=== PATIENT | female | born 1965 | race Caucasian/White ===

== ENCOUNTER 2017-09-21 22:00 | Observation (INO) ==
[2017-09-21 22:35] LABS: Basophils # 0.1 K/mcL (0.0-0.2); Basophils % 0.4 %; Eosinophils # 0.1 K/mcL (0.0-0.6); Eosinophils % 0.6 %; Hematocrit 41.7 % (35.3-44.9); Hemoglobin 13.9 g/dL (11.5-15.4); Immature Granulocytes % 0.4 % (0-4); Lymphocytes # 1.5 K/mcL (0.6-4.6); Lymphocytes % 10.8 %; Mean Corpuscular HGB Conc 33.3 g/dL (31.6-35.5); Mean Corpuscular Hemoglobin 30.4 pg (28.0-33.3); Mean Corpuscular Volume 91.2 fL (83.0-100.0); Mean Platelet Volume 10.4 fL (9.4-12.4); Monocytes # 1.3 K/mcL (0.0-1.3); Monocytes % 9.4 %; Neutrophils # 10.8 K/mcL (1.6-8.9); Platelet Count 227 K/mcL (140-400); Red Blood Count 4.57 M/mcL (3.82-4.97); Red Cell Distribution Width 13.7 % (11.5-14.5); Segmented Neutrophils % 78.4 %
[2017-09-21 22:40] LABS: Prothrombin Time 11.1 Seconds (9.4-12.1)
[2017-09-21 22:43] LABS: Activated Partial Thrombo Time 27.3 Seconds (26.0-36.0)
[2017-09-21 22:56] LABS: BUN/Creatinine Ratio 27 (6-26); Blood Urea Nitrogen 23 mg/dL (6-20); Calcium 9.5 mg/dL (8.6-10.3); Carbon Dioxide 24 mEq/L (23-29); Chloride 105 mEq/L (98-107); Glucose 84 mg/dL (70-105); Osmolality,Calculated 295 (280-300); Potassium 3.4 mEq/L (3.5-5.1); Sodium 141 mEq/L (136-145); eGFR For African Americans > 60 (> 60); eGFR For Non-African Americans > 60 (> 60)
[2017-09-21 22:57] LABS: Troponin I < 0.03 ng/mL (< 0.04)
[2017-09-21] MEDS ORDERED: Nitroglycerin 0.4 MG TAB.SUBL SL STA (23:02)
[2017-09-21] MEDS ORDERED: Aspirin 81 MG TAB.CHEW PO ONE (23:02)
[2017-09-21] MEDS ORDERED: *HR* FentaNYL (PF) 100 MCG/2 ML VIAL IVP ONE (23:50)
[2017-09-21] MEDS ORDERED: 0.9 % Sodium Chloride 1,000 ML IVC ONE (23:57)
[2017-09-21] MEDS ORDERED: Ipratropium/Albuterol Neb 3 ML IH ONE (23:57)
--- NOTE | 2017-09-22 00:57 | Emergency Department Note ---
Disposition Clinical Impression: Chest pain Qualifiers: Chest pain type: unspecified Qualified Code(s): R07.9 - Chest pain, unspecified Disposition: Admitted As Inpatient Condition: Good Chest Pain HPI - General Chief Complaint: ED Chest Pain Stated Complaint: Chest Pain Time Seen by Provider: 09/21/17 22:45 Source: patient Limitations: no limitations Vital Signs Reviewed: Yes Nursing Notes Reviewed: Yes - History of Present Illness HPI Narrative: Patient presents today for evaluation of chest pain. Chest pain center chest and described as tightness. Worse with exertion. Patient states that earlier today she had neck pain. Neck pain is worse with movement of her neck. No specific trauma. Not after sleeping. Patient states that she has not had similar symptoms in the past. No previous cardiac history or workup. She does have a history of lung cancer is not currently treated as a remission. Patient received aspirin and nitroglycerin. Severity scale (1-10): 6 - Related Data Home Medications Medication Instructions Recorded Confirmed Levothyroxine [Synthroid] 88 mcg PO QAM 02/11/15 09/15/17 Albuterol Sulfate [Proventil Hfa] 2 puff IH Q4H PRN 05/12/17 09/15/17 Allergies Allergy/AdvReac Type Severity Reaction Status Date / Time Oxycodone [From Roxicodone] Allergy Unknown Rash Verified 09/15/17 11:39 Hydromorphone [From Dilaudid] Allergy Rash Verified 09/15/17 11:39 Review of Systems: CONSTITUTIONAL: No weight loss, fever, chills, weakness or fatigue. HEENT: Eyes: No visual changes. Ears, Nose, Throat: No hearing loss, difficulty talking or unable to swallow. SKIN: No rash or itching. CARDIOVASCULAR: Chest pressure RESPIRATORY: No shortness of breath, cough or sputum. GASTROINTESTINAL: No anorexia, nausea, vomiting or diarrhea. No abdominal pain or blood. GENITOURINARY: No burning on urination or hematuria. NEUROLOGICAL: No headache, dizziness, syncope, paralysis, ataxia, numbness or tingling in the extremities. No change in bowel or bladder control. MUSCULOSKELETAL: Neck pain No muscle pain, back pain, joint pain or stiffness. Chest Pain PMH - Past Medical History Medical history: Reports: arthritis, cancer, thyroid disease Surgical history: Reports: orthopedic, other Psychiatric history: Reports: anxiety - Social History Smoking Status: Former smoker Alcohol use: Reports: none Drug use: Reports: none Physical Exam General: Well appearing, nontoxic, no acute distress Head: Normocephalic Atraumatic Eyes: PERRL, EOMI ENT: Airway patent, no stridor Neck: supple, no meningismus Chest: Lungs clear to auscultation bilateral Cardiac: Regular rate and rhythm, no murmurs, rubs or gallops Abdomen: soft, nontender, nondistended; no guarding, rebound, or tenderness to percussion Musculoskeletal: Calves symmetric, nontender, no palpable cord Skin: No rash, normal skin tone Neuro: Alert and Oriented to person, place, and time; No focal deficit, CN 2-12 symmetric and intact - General Limitations: no limitations General appearance: alert, in no apparent distress Course Course Narrative: Patient received aspirin and 2 nitroglycerin. Patient states that closer did not significantly improve her pain. Patient still complaining of chest pressure. Patient has allergies to narcotics. Patient has tolerated atenolol in the past. April given along with a breathing treatment. Patient states that she now feels significantly better. Patient did not have any significant wheezing and lung sounds are unchanged after breathing treatment. Patient did not have complaints of shortness of breath. Less likely COPD exacerbation. Patient does have concerns for cardiac disease. She does have nonspecific T- wave changes throughout the precordial and lateral leads. The patient states that her symptoms worsen acutely worse with walking. Has not had any previous cardiac workup. Have discussed with her at bedside. Will plan for cardiac evaluation. D-dimer negative. - Consultations Consultation #1: Discussed the hospitalist. Patient accepted for admission. Vital Signs Temperature 98.0 F 09/21/17 22:01 Pulse Rate 84 09/21/17 22:01 Respiratory Rate 18 09/21/17 22:01 Blood Pressure 134/85 09/21/17 22:01 O2 Sat by Pulse Oximetry 95 09/21/17 22:01 Temperature 97.8 F 09/22/17 01:39 Pulse Rate 79 09/22/17 00:32 Respiratory Rate 16 09/22/17 01:39 Blood Pressure 110/68 09/22/17 01:39 O2 Sat by Pulse Oximetry 96 09/22/17 00:32 Oxygen Delivery Oxygen Delivery Nasal Cannula Chest Pain - Medical Records Medical records reviewed: Yes I reviewed the patient's medical records. - Lab Data Lab results reviewed: Yes I reviewed the patient's lab results. Result diagrams: 09/21/17 22:27 09/21/17 22:27 Lab Results 09/21/17 09/21/17 09/21/17 Range/Units 22:27 22:27 22:27 WBC 13.8 H D (4.3-11.1) K/mcL RBC 4.57 (3.82-4.97) M/mcL Hgb 13.9 (11.5-15.4) g/dL Hct 41.7 (35.3-44.9) % MCV 91.2 (83.0-100.0) fL MCH 30.4 (28.0-33.3) pg MCHC 33.3 (31.6-35.5) g/dL RDW 13.7 (11.5-14.5) % Plt Count 227 (140-400) K/mcL MPV 10.4 (9.4-12.4) fL Immature Gran % 0.4 (0-4) % Seg Neutrophils % 78.4 % Lymphocytes % 10.8 % Monocytes % 9.4 % Eosinophils % 0.6 % Basophils % 0.4 % Neutrophils # 10.8 H (1.6-8.9) K/mcL Lymphocytes # 1.5 (0.6-4.6) K/mcL Monocytes # 1.3 (0.0-1.3) K/mcL Eosinophils # 0.1 (0.0-0.6) K/mcL Basophils # 0.1 (0.0-0.2) K/mcL PT 11.1 (9.4-12.1) Seconds INR 1.0 APTT 27.3 (26.0-36.0) Seconds D-Dimer 399 (0-500) ng/mLFEU Sodium 141 (136-145) mEq/L Potassium 3.4 L (3.5-5.1) mEq/L Chloride 105 (98-107) mEq/L Carbon Dioxide 24 (23-29) mEq/L BUN 23 H (6-20) mg/dL Creatinine 0.85 (0.60-1.20) mg/dL Est GFR ( Amer) > 60 (> 60) Est GFR (Non-Af Amer) > 60 (> 60) BUN/Creatinine Ratio 27 H (6-26) Glucose 84 (70-105) mg/dL Calculated Osmolality 295 (280-300) Calcium 9.5 (8.6-10.3) mg/dL Troponin I < 0.03 (< 0.04) ng/mL - Radiology Data Radiology results reviewed: Yes I reviewed the patient's radiology results. - EKG Data EKG attestation: Yes I reviewed and interpreted this EKG. EKG results narrative: EKG shows sinus rhythm with ventricular rate of 76. CO interval 160. QRS 90. QTC 429. Patient has no skin ST elevations or depressions. Patient does have T -wave flattening throughout V1 through V6. As well as one in aVL. These changes are acute from previous of 12/17/2016. Heart Score - Score History: Moderately Suspicious EKG: Non Specific repolarisation Disturbance Age: 45-65 Risk Factors: 1-2 risk factors Troponin: Less than normal limit HEART Score Total: 4
--- NOTE | 2017-09-22 05:45 | Emergency Department Note ---
Disposition Clinical Impression: Chest pain Qualifiers: Chest pain type: unspecified Qualified Code(s): R07.9 - Chest pain, unspecified Disposition: Admitted As Inpatient Condition: Good General Adult HPI - General Chief complaint: ED Chest Pain Stated complaint: Chest Pain Time Seen by Provider: 09/21/17 22:45 Source: patient Limitations: no limitations Nursing Notes Reviewed: Yes Vital Signs Reviewed: Yes - History of Present Illness Pain Scale: 6 - Related Data Home Medications Medication Instructions Recorded Confirmed Levothyroxine [Synthroid] 88 mcg PO QAM 02/11/15 09/15/17 Albuterol Sulfate [Proventil Hfa] 2 puff IH Q4H PRN 05/12/17 09/15/17 Allergies Allergy/AdvReac Type Severity Reaction Status Date / Time Oxycodone [From Roxicodone] Allergy Unknown Rash Verified 09/15/17 11:39 Hydromorphone [From Dilaudid] Allergy Rash Verified 09/15/17 11:39 Past Medical History - Past Medical History Medical history: Reports: arthritis, cancer, thyroid disease Surgical history: Reports: orthopedic, other Psychiatric history: Reports: anxiety - Social History Smoking Status: Former smoker Smokeless Tobacco Status: No Alcohol use: Reports: none Drug use: Reports: none Physical Exam - General Limitations: no limitations General appearance: alert, in no apparent distress Course Vital Signs Temperature 98.0 F 09/21/17 22:01 Pulse Rate 84 09/21/17 22:01 Respiratory Rate 18 09/21/17 22:01 Blood Pressure 134/85 09/21/17 22:01 O2 Sat by Pulse Oximetry 95 09/21/17 22:01 Temperature 97.8 F 09/22/17 01:39 Pulse Rate 79 09/22/17 00:32 Respiratory Rate 16 09/22/17 01:39 Blood Pressure 110/68 09/22/17 01:39 O2 Sat by Pulse Oximetry 96 09/22/17 00:32 Oxygen Delivery Oxygen Delivery Nasal Cannula Medical Decision Making - Lab Data Result diagrams: 09/21/17 22:27 09/21/17 22:27 Lab Results 09/21/17 09/21/17 09/21/17 Range/Units 22:27 22:27 22:27 WBC 13.8 H D (4.3-11.1) K/mcL RBC 4.57 (3.82-4.97) M/mcL Hgb 13.9 (11.5-15.4) g/dL Hct 41.7 (35.3-44.9) % MCV 91.2 (83.0-100.0) fL MCH 30.4 (28.0-33.3) pg MCHC 33.3 (31.6-35.5) g/dL RDW 13.7 (11.5-14.5) % Plt Count 227 (140-400) K/mcL MPV 10.4 (9.4-12.4) fL Immature Gran % 0.4 (0-4) % Seg Neutrophils % 78.4 % Lymphocytes % 10.8 % Monocytes % 9.4 % Eosinophils % 0.6 % Basophils % 0.4 % Neutrophils # 10.8 H (1.6-8.9) K/mcL Lymphocytes # 1.5 (0.6-4.6) K/mcL Monocytes # 1.3 (0.0-1.3) K/mcL Eosinophils # 0.1 (0.0-0.6) K/mcL Basophils # 0.1 (0.0-0.2) K/mcL PT 11.1 (9.4-12.1) Seconds INR 1.0 APTT 27.3 (26.0-36.0) Seconds D-Dimer 399 (0-500) ng/mLFEU Sodium 141 (136-145) mEq/L Potassium 3.4 L (3.5-5.1) mEq/L Chloride 105 (98-107) mEq/L Carbon Dioxide 24 (23-29) mEq/L BUN 23 H (6-20) mg/dL Creatinine 0.85 (0.60-1.20) mg/dL Est GFR ( Amer) > 60 (> 60) Est GFR (Non-Af Amer) > 60 (> 60) BUN/Creatinine Ratio 27 H (6-26) Glucose 84 (70-105) mg/dL Calculated Osmolality 295 (280-300) Calcium 9.5 (8.6-10.3) mg/dL Troponin I < 0.03 (< 0.04) ng/mL Attestation Statement - Attestation Attestation: I examined this patient and my medical decision-making was reviewed with the Resident Physician. I agree with the documented findings, disposition and treatment plan as described except to the extent set forth below. 52-year-old female presents to the emergency department complaining of some mid chest tightness and discomfort. No history of heart problems in the past. Symptoms are worse with exertion. No shortness of breath. On examination patient is a well-developed well-nourished well-appearing female in no acute distress. She is alert and oriented 3. There is no cyanosis or diaphoresis. Labs reviewed. D-dimer normal. Troponin normal. EKG shows a normal sinus rhythm with ventricular rate is 76. No acute ST segment elevation or depression. There is some nonspecific T-wave abnormality with flattening. Chest x-ray showed mild left basilar atelectasis. The hospitalist, Dr. Vasquez, was consulted and accepted admission of the patient.
[2017-09-22] MEDS ORDERED: *HR* FentaNYL (PF) 100 MCG/2 ML VIAL IVP PRN (06:01)
[2017-09-22] MEDS ORDERED: Nitroglycerin 0.4 MG TAB.SUBL SL PRN (06:13)
[2017-09-22] MEDS: *HR* Heparin 5,000 UNIT/ML VIAL SQ SCH ×2 (06:41→17:49)
[2017-09-22 07:43] LABS: Basophils % 0.5 %; Eosinophils % 0.5 %; Hematocrit 36.8 % (35.3-44.9); Immature Granulocytes % 0.4 % (0-4); Lymphocytes # 0.9 K/mcL (0.6-4.6); Lymphocytes % 11.2 %; Mean Corpuscular HGB Conc 32.6 g/dL (31.6-35.5); Mean Corpuscular Hemoglobin 30.2 pg (28.0-33.3); Mean Corpuscular Volume 92.5 fL (83.0-100.0); Mean Platelet Volume 10.5 fL (9.4-12.4); Monocytes # 1.2 K/mcL (0.0-1.3); Monocytes % 15.1 %; Neutrophils # 5.8 K/mcL (1.6-8.9); Platelet Count 173 K/mcL (140-400); Red Blood Count 3.98 M/mcL (3.82-4.97); Red Cell Distribution Width 13.8 % (11.5-14.5); Segmented Neutrophils % 72.3 %
[2017-09-22 07:46] LABS: BUN/Creatinine Ratio 23 (6-26); Blood Urea Nitrogen 15 mg/dL (6-20); Calcium 8.3 mg/dL (8.6-10.3); Carbon Dioxide 23 mEq/L (23-29); Chloride 109 mEq/L (98-107); Chol/HDL Ratio 2.9 (0-4.9); Cholesterol 171 mg/dL (< 200); Glucose 115 mg/dL (70-105); HDL Cholesterol 59 mg/dL (40-59); LDL Cholesterol,Calculated 106 mg/dL (0-99); Osmolality,Calculated 294 (280-300); Potassium 3.6 mEq/L (3.5-5.1); Sodium 141 mEq/L (136-145); Triglycerides 28 mg/dL (< 150); Troponin I < 0.03 ng/mL (< 0.04); eGFR For African Americans > 60 (> 60); eGFR For Non-African Americans > 60 (> 60)
[2017-09-22 07:51] LABS: INR 1.1; Prothrombin Time 12.1 Seconds (9.4-12.1)
[2017-09-22 07:54] LABS: Activated Partial Thrombo Time 28.2 Seconds (26.0-36.0)
[2017-09-22] MEDS: Aspirin 81 MG TAB.CHEW PO SCH (08:42)
--- NOTE | 2017-09-22 13:34 | Electrocardiograph Report ---
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
[2017-09-22] MEDS: Acetaminophen 325 MG TABLET PO PRN ×2 (13:42→20:19)
--- NOTE | 2017-09-22 15:09 | Electrocardiograph Report ---
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
--- NOTE | 2017-09-22 17:06 | Internal Med Progress Note ---
Date of Encounter: 09/22/17 Time of Encounter: 11:10 - Assessment and plan (1) Chest pain Current Visit: Yes Status: Acute Assessment and plan: Patient presented to the emergency department with one-day history of chest pain with radiation to the left neck and jaw. She reported palpitations and tachycardia. Onset while at work. She denies fevers, cough, shortness of breath, nausea, vomiting, diaphoresis. No radiation to the back or arm. Chest pain is not reproducible with palpation, she does report 2/10 pain with inspiration, becomes worse with deep inspiration. Pain is not reproducible with movement. Denies prior cardiac history, no CAD. D-dimer is negative. Troponins were negative 3. Echo completed shows LVEF of 60% with normal LV diastolic function, mild AR, mild TR. There is noted a suggestion of pulmonary AVM in secondary to bubbles seen in the LV after about 6 cardiac cycles. There is no evidence of PFO. Continue telemetry Treat chest pain with aspirin or nitroglycerin Stress test ordered for morning. Monitor vitals and labs Cardiac diet. Nothing by mouth after midnight. Qualifiers: Chest pain type: unspecified Qualified Code(s): R07.9 - Chest pain, unspecified (2) Cancer of right lung Current Visit: Yes Status: Chronic Assessment and plan: Prior history. In remission since 2012. Chest x-ray showed continued right suprahilar scarring and/or neoplasm which appears similar when compared to previous chest CT. Last chest CT is dated 03/22/2017, shows interval improvement of right paramediastinal post radiation pneumonitis/fibrosis with improvement in the previously measured right perihilar mass which may represent inflammatory changes versus neoplasm. Chest X-Ray 09/21/17 22:04 IMPRESSION: The only acute abnormality appears to be mild left basilar airspace disease, which could represent atelectasis, although pneumonia remains in the differential. Continued right suprahilar scarring and/or neoplasm, which appears similar when compared the previous chest CT. D/ / Wilfredo Bryant MD / Wilfredo Bryant MD Interpreting Provider: Wilfredo Bryant MD Qualifiers: Lung location: unspecified part of lung Qualified Code(s): C34.91 - Malignant neoplasm of unspecified part of right bronchus or lung (3) DVT prophylaxis Current Visit: Yes Status: Acute Assessment and plan: Heparin SQ BID. Encourage ambulation. - Time Spent With Patient Total time spent is greater than 50% in coordination of care (as documented) at patient's floor/unit and/or counseling patient: less than 15 minutes - Subjective Interval history: Pt was seen and assessed at bedside at 1110. She had just returned from testing when I saw her. Pt reports that she feels tired. She is flat and at times slow to respond. She reports 2/10 left chest pain with inspiration, worse with deep inspiration. Onset of chest pain while at work. 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 Denies that pain is reproducible with palpation. She denies headache, dizziness, n/v/d, diaphoresis , abdominal pain or SOB. - Constitutional Vitals: Temp Pulse Resp BP Pulse Ox 98.6 F 75 16 103/65 93 09/22/17 15:25 09/22/17 15:25 09/22/17 15:25 09/22/17 15:25 09/22/17 15:25 General appearance: Present: cooperative, A&O X 3, pleasant, no acute distress, answers questions appropriately - Head Head exam: Present: atraumatic, normal inspection, normocephalic - Eye Eye exam: Present: normal appearance, conjuntiva pink, sclera anicteric - Neck Neck exam general surgery: Present: normal inspection, supple, trachea midline. Absent: lymphadenopathy, tenderness - Respiratory Respiratory exam: Present: CTAB. Absent: accessory muscle use, chest wall tenderness, rales, respiratory distress, rhonchi, wheezes - Cardiovascular Cardiovascular exam: Present: RRR, +S1, +S2. Absent: diastolic murmur, gallop, rubs, systolic murmur - GI/Abdominal GI/Abdominal exam: Present: normal bowel sounds, soft. Absent: distended, hepatomegaly, tenderness - Extremities Exam Extremities exam: Present: normal capillary refill, normal inspection, warm, radial pulses palpable and symmetrical. Absent: calf tenderness, cyanotic, pedal edema, tenderness - Neurological Exam Neurological exam: Present: alert, oriented X3, no focal deficits. Absent: facial droop, speech deficit - Skin Skin exam: Present: dry, intact, normal color, warm. Absent: rash Internal Medicine: Result - Labs CBC & Chem 7: 09/22/17 07:07 09/22/17 07:07 Labs: Short CBC 09/22/17 Range/Units 07:07 WBC 8.0 (4.3-11.1) K/mcL Hgb 12.0 D (11.5-15.4) g/dL Hct 36.8 (35.3-44.9) % Plt Count 173 (140-400) K/mcL Neutrophils # 5.8 (1.6-8.9) K/mcL BMP 09/22/17 07:07 Sodium 141 Potassium 3.6 Chloride 109 H Carbon Dioxide 23 BUN 15 Creatinine 0.64 Glucose 115 H Calcium 8.3 L Cardiac Enzymes 09/22/17 09/22/17 Range/Units 07:07 13:07 Troponin I < 0.03 < 0.03 (< 0.04) ng/mL - ABG Interpretation ABG results: PT/INR, D-dimer PT 12.1 Seconds (9.4-12.1) 09/22/17 07:07 D-Dimer 399 ng/mLFEU (0-500) 09/21/17 22:27 - Impressions Impressions Echocardiogram 09/22/17 06:08 Impressions: LVEF 60%. Normal left ventricular diastolic function. Normal right ventricular structure and function. Mild aortic regurgitation. Mild tricuspid regurgitation. Borderline pulmonary hypertension. Saline contrast injection demonstrates a few bubble seen in the LV after about 6 cardiac cycles, suggestive of a pulmonary AVM. No evidence for PFO. Left Ventricular Wall Motion: Rest Echo Findings All wall segments showed normal motion. Findings: Study Quality * Technically adequate exam. ECG Findings * Normal sinus rhythm. Left Ventricle * LVEF 60%. * Normal LV chamber size, wall thickness and function. * Normal left ventricular diastolic function. Right Ventricle * Normal right ventricular structure and function. Left Atrium * Normal left atrial size. Right Atrium * Normal right atrial size. Mitral Valve * Normal mitral valve structure. * No mitral stenosis. * No mitral regurgitation. Aortic Valve * Aortic valve not well visualized. * No aortic stenosis. * Mild aortic regurgitation. Tricuspid Valve * Normal tricuspid valve structure. * Mild tricuspid regurgitation. * Estimated RA pressure is 3 mmHg. * Estimated RVSP is 35 mmHg. * Borderline pulmonary hypertension. Pulmonic Valve * Pulmonic valve is not well visualized. * No pulmonic stenosis. * Trace pulmonic regurgitation. Pulmonary Artery * Pulmonary artery not well visualized. Aorta * Normally sized aortic root. Pericardium * There is no pericardial effusion present. Interatrial Septum * No evidence of PFO by color Doppler. IVC * Normal IVC dimensions and inspiratory collapse. Consult Discharge Plan - Plan Referrals: Terrell Frey MD [Primary Care Provider] - 09/28/17 8:00 am
[2017-09-23] MEDS: *HR* Heparin 5,000 UNIT/ML VIAL SQ SCH (05:42)
[2017-09-23] MEDS ORDERED: Regadenoson 0.4 MG/5 ML SYRINGE IVP ONE (06:06)
[2017-09-23] MEDS: Acetaminophen 325 MG TABLET PO PRN (08:55)
[2017-09-23] MEDS: Aspirin 81 MG TAB.CHEW PO SCH (08:56)
[2017-09-23 11:01] VITALS: BP 106/71
--- NOTE | 2017-09-23 13:46 | Discharge Summary ---
- NOTES TO OUTPATIENT PROVIDER Notes to Outpatient Provider: Pt was admitted for left chest pain with radiation to the neck. Echo shows LVEF 60%, normal LV diastolic function, mild AR, mild TR, possible PAVM. Stress test negative with gated EF 75%. Pt will follow up with cardiology outpatient for evaluation of AVM. Orders not resulted at time of discharge: Pending orders 09/23/17 06:00 NM alaina perf SPECT multi [NM] Routine ECG 12 lead ECG [ECG] AM 0600 Date of Encounter: 09/23/17 Time of Encounter: 09:30 - Discharge Diagnosis (1) Chest pain Priority: Primary Status: Acute Assessment and Plan: Pt pain free. Denies SOB, chest pain or neck pain. Echo completed shows LVEF of 60% with normal LV diastolic function, mild AR, mild TR. There is noted a suggestion of pulmonary AVM in secondary to bubbles seen in the LV after about 6 cardiac cycles. There is no evidence of PFO. Stress test negative. Pt will follow up with cardiology in the office for PAVM. Continue ASA Qualifiers: Chest pain type: unspecified Qualified Code(s): R07.9 - Chest pain, unspecified (2) Cancer of right lung Priority: Secondary Status: Chronic Assessment and Plan: Prior history. In remission since 2012. Follow with oncology as scheduled. Chest X-Ray 09/21/17 22:04 IMPRESSION: The only acute abnormality appears to be mild left basilar airspace disease, which could represent atelectasis, although pneumonia remains in the differential. Continued right suprahilar scarring and/or neoplasm, which appears similar when compared the previous chest CT. D/ / Wilfredo Bryant MD / Wilfredo Bryant MD Interpreting Provider: Wilfredo Bryant MD Qualifiers: Lung location: unspecified part of lung Qualified Code(s): C34.91 - Malignant neoplasm of unspecified part of right bronchus or lung (3) DVT prophylaxis Priority: Secondary Status: Acute Assessment and Plan: Heparin SQ BID. Hospital course: Ms. Lofton is a 52 year old female with PMH of lung cancer, hypothyroidism. Pt presented to the ED with c/o left chest pain and left neck pain. Troponins were negative x 3, chest xray negative but noted atelectasis vs pneumonia. Stress test negative, Echo with pEF, mild TR, mild MR, suggested PAVM. Pt will follow up with PCP for AVM, discussed with [employer]ER and Dr. Lange who state pt can follow up with in the office. Pt had no leukocytosis, tachycardia, fever, chills , cough, or SOB, no respiratory failure or distress. Lungs are clear, so pneumonia ruled out. Pt will continue to follow with oncology for stage IIIB lung cancer. Pt has returned to her baseline and states that she feels well and is ready to go home. Labs and vitals are stable and WNL, pt is ready for discharge. Discharge discussed with: patient, nurse - Time Spent with Patient Total time spent providing and/or coordinating discharge services: Less than 30 minutes - Discharge Medications Home Medications: Levothyroxine Sodium 88 mcg PO DAILY 09/22/17 [History] Aspirin 81 mg PO DAILY #0 tab.chew 09/23/17 [Rx] Allergies/Adverse Reactions: 3 Allergy/AdvReac Type Severity Reaction Status Date / Time Oxycodone [From Roxicodone] Allergy Unknown Rash Verified 09/22/17 08:07 Hydromorphone [From Dilaudid] Allergy Rash Verified 09/22/17 08:07 Date of admission: 09/22/17 01:29 Primary care physician: Terrell Frey MD Discharging clinician: Jena Olguin Anticipated date of discharge: 09/23/17 - Constitutional Vitals: Temp Pulse Resp BP Pulse Ox 97.7 F 54 16 106/71 93 09/23/17 11:00 09/23/17 11:00 09/23/17 11:00 09/23/17 11:00 09/23/17 11:00 General appearance: Present: cooperative, A&O X 3, pleasant, no acute distress, answers questions appropriately - Patient Status Disposition: Home, Self-Care Condition: Good Functional capacity at discharge: independent ambulation Overall status at discharge: patient is back to baseline - Discharge Instructions Follow Up With: Terrell Frey MD [Primary Care Provider] - 09/28/17 8:00 am Additional Instructions: Follow up with cardiology in their office for results of echo as scheduled. They will call you for an appointment. Follow up with PCP in the next 5-7 days for a recheck. REturn to the ER as needed for any other problems or concerns or if your symptoms return or worsen, Take your medications as directed. Return to your normal diet and activities as tolerated. - Diet and Activity Activity: increase activity as tolerated Diet: advance to your usual diet
== END 2017-09-23 15:30 | disposition home or self-care (01) ==
LOC: 3BNU 22:00 → EMEROO 22:00 → 3BNU 09-22 01:40
PROVIDERS: ADMIT Pediatrics; ATTEND Pediatrics

== ENCOUNTER 2020-05-30 11:39 | Inpatient (IN) ==
[2020-05-30 12:25] LABS: Basophils % 0.2 %; Hemoglobin 12.3 g/dL (11.5-15.4); Immature Granulocytes % 0.4 % (0-4); Lymphocytes # 0.8 K/mcL (0.6-4.6); Lymphocytes % 15.7 %; Mean Corpuscular HGB Conc 31.5 g/dL (31.6-35.5); Mean Corpuscular Hemoglobin 25.7 pg (28.0-33.3); Mean Corpuscular Volume 81.4 fL (83.0-100.0); Mean Platelet Volume 10.3 fL (9.4-12.4); Monocytes # 0.6 K/mcL (0.0-1.3); Monocytes % 10.9 %; Neutrophils # 3.9 K/mcL (1.6-8.9); Platelet Count 236 K/mcL (140-400); Red Blood Count 4.79 M/mcL (3.82-4.97); Red Cell Distribution Width 17.2 % (11.5-14.5); Segmented Neutrophils % 72.8 %; White Blood Count 5.3 K/mcL (4.3-11.1)
[2020-05-30 12:33] LABS: BUN/Creatinine Ratio 21 (6-26); Blood Urea Nitrogen 14 mg/dL (6-20); Calcium 8.3 mg/dL (8.6-10.3); Carbon Dioxide 25 mEq/L (23-29); Chloride 100 mEq/L (98-107); Glucose 104 mg/dL (70-105); Osmolality,Calculated 281 (280-300); Potassium 3.3 mEq/L (3.5-5.1); Sodium 135 mEq/L (136-145); Troponin I < 0.03 ng/mL (< 0.04); eGFR For African Americans > 60 (> 60); eGFR For Non-African Americans > 60 (> 60)
[2020-05-30] MEDS ORDERED: Naloxone 0.4 MG/ML INJ IVP PRN (14:18)
[2020-05-30] MEDS ORDERED: Ondansetron 4 MG/2 ML VIAL IVP PRN (14:18)
[2020-05-30] MEDS ORDERED: Azithromycin 500 MG in 0.9 % Sodium Chloride 250 ML IVPB SCH (15:00)
[2020-05-30] MEDS ORDERED: Potassium Chloride Elixir 20 MEQ/15 ML UDC PO ONE (15:04)
[2020-05-30] MEDS ORDERED: Acetaminophen 325 MG TABLET PO PRN (15:19)
[2020-05-30] MEDS ORDERED: Benzonatate 100 MG CAPSULE PO PRN (15:19)
[2020-05-30 15:57] LABS: C-Reactive Protein 43 mg/L (Less than 10); Lactate Dehydrogenase 318 Units/L (140-271)
[2020-05-30 16:15] LABS: Ferritin 25 ng/mL (10-120)
[2020-05-30] MEDS: cefTRIAXone 1,000 MG in Water for inj. (sterile) 10 ML IVP SCH (16:55)
[2020-05-31] MEDS ORDERED: Dexamethasone Sodium Phos/PF 10 MG/ML VIAL IVP ONE (00:30)
[2020-05-31 02:20] LABS: Adenovirus Not Detected (Not Detect); Coronavirus 229E Not Detected (Not Detect); Coronavirus HKU1 Not Detected (Not Detect); Coronavirus NL63 Not Detected (Not Detect); Coronavirus OC43 Not Detected (Not Detect)
[2020-05-31 02:21] LABS: Bordetella Pertussis Not Detected (Not Detect); Chlamydophila pneumoniae Not Detected (Not Detect); Human Metapneumovirus Not Detected (Not Detect); Human Rhinovirus/Enterovirus Not Detected (Not Detect); Influenza A Subtype 2009 H1 Not Detected (Not Detect); Influenza B Not Detected (Not Detect); Mycoplasma pneumoniae Not Detected (Not Detect); Parainfluenza Virus 1 Not Detected (Not Detect); Parainfluenza Virus 2 Not Detected (Not Detect); Parainfluenza Virus 3 Not Detected (Not Detect); Parainfluenza Virus 4 Not Detected (Not Detect); Respiratory Syncytial Virus Not Detected (Not Detect); SARS-CoV-2 DETECTED (Not Detect)
[2020-05-31] MEDS: *HR* Enoxaparin 40 MG/0.4 ML SYRINGE SQ SCH (05:37)
[2020-05-31 06:05] LABS: Hematocrit 37.6 % (35.3-44.9); Hemoglobin 11.7 g/dL (11.5-15.4); Immature Granulocytes % 0.8 % (0-4); Lymphocytes # 0.5 K/mcL (0.6-4.6); Lymphocytes % 12.1 %; Mean Corpuscular HGB Conc 31.1 g/dL (31.6-35.5); Mean Corpuscular Hemoglobin 25.1 pg (28.0-33.3); Mean Corpuscular Volume 80.5 fL (83.0-100.0); Mean Platelet Volume 10.7 fL (9.4-12.4); Monocytes # 0.2 K/mcL (0.0-1.3); Monocytes % 4.4 %; Neutrophils # 3.2 K/mcL (1.6-8.9); Platelet Count 239 K/mcL (140-400); Red Blood Count 4.67 M/mcL (3.82-4.97); Segmented Neutrophils % 82.7 %; White Blood Count 3.9 K/mcL (4.3-11.1)
[2020-05-31 06:29] LABS: BUN/Creatinine Ratio 22 (6-26); Blood Urea Nitrogen 12 mg/dL (6-20); Calcium 8.5 mg/dL (8.6-10.3); Carbon Dioxide 25 mEq/L (23-29); Chloride 106 mEq/L (98-107); Glucose 152 mg/dL (70-105); Osmolality,Calculated 293 (280-300); Potassium 3.7 mEq/L (3.5-5.1); Sodium 140 mEq/L (136-145); eGFR For African Americans > 60 (> 60); eGFR For Non-African Americans > 60 (> 60)
[2020-05-31] MEDS: cefTRIAXone 1,000 MG in Water for inj. (sterile) 10 ML IVP SCH (07:56)
[2020-05-31] MEDS: Ipratropium 1 PUFF INHALER IH SCH ×3 (12:09→20:55)
[2020-05-31 13:43] LABS: Alanine Aminotransferase 28 Units/L (7-52); Albumin 3.6 g/dL (3.5-5.7); Albumin/Globulin Ratio 1.1 (1.1-2.2); Alkaline Phosphatase 84 Units/L (34-104); Aspartate Amino Transferase 28 Units/L (13-39); Bilirubin,Indirect 0.3 mg/dL (0.0-1.0); Bilirubin,Total 0.3 mg/dL (0.3-1.0); Globulin 3.2 g/dL (2.4-3.5); Total Protein 6.8 g/dL (6.4-8.9)
[2020-05-31] MEDS: Furosemide 20 MG/2 ML VIAL IVP SCH (14:56)
[2020-05-31] MEDS ORDERED: Remdesivir 200 MG in 0.9 % Sodium Chloride 100 ML IVPB ONE (15:00)
[2020-05-31] MEDS ORDERED: Melatonin 3 MG TABLET PO ONE (21:44)
[2020-06-01] MEDS: Ipratropium 1 PUFF INHALER IH SCH ×6 (00:16→20:25)
[2020-06-01] MEDS: *HR* Enoxaparin 40 MG/0.4 ML SYRINGE SQ SCH (05:57)
[2020-06-01 07:21] LABS: Hematocrit 39.1 % (35.3-44.9); Hemoglobin 11.8 g/dL (11.5-15.4); Mean Corpuscular HGB Conc 30.2 g/dL (31.6-35.5); Mean Corpuscular Hemoglobin 24.7 pg (28.0-33.3); Mean Corpuscular Volume 81.8 fL (83.0-100.0); Mean Platelet Volume 10.9 fL (9.4-12.4); Platelet Count 284 K/mcL (140-400); Red Blood Count 4.78 M/mcL (3.82-4.97); Red Cell Distribution Width 17.2 % (11.5-14.5); White Blood Count 11.5 K/mcL (4.3-11.1)
[2020-06-01 07:41] LABS: BUN/Creatinine Ratio 33 (6-26); Blood Urea Nitrogen 21 mg/dL (6-20); Calcium 8.6 mg/dL (8.6-10.3); Carbon Dioxide 27 mEq/L (23-29); Chloride 103 mEq/L (98-107); Glucose 104 mg/dL (70-105); Osmolality,Calculated 299 (280-300); Sodium 143 mEq/L (136-145); eGFR For African Americans > 60 (> 60); eGFR For Non-African Americans > 60 (> 60)
[2020-06-01 07:42] LABS: Albumin 3.6 g/dL (3.5-5.7); Albumin/Globulin Ratio 1.1 (1.1-2.2); Bilirubin,Direct 0.1 mg/dL (0.0-0.2); Bilirubin,Indirect 0.2 mg/dL (0.0-1.0); Bilirubin,Total 0.3 mg/dL (0.3-1.0); Globulin 3.2 g/dL (2.4-3.5); Total Protein 6.8 g/dL (6.4-8.9)
[2020-06-01] MEDS: Furosemide 20 MG/2 ML VIAL IVP SCH (08:33)
[2020-06-01] MEDS: Remdesivir 100 MG in 0.9 % Sodium Chloride 100 ML IVPB SCH (14:52)
[2020-06-02] MEDS: Ipratropium 1 PUFF INHALER IH SCH ×7 (00:01→23:50)
[2020-06-02 04:08] LABS: Basophils % 0.2 %; Hematocrit 38.2 % (35.3-44.9); Hemoglobin 11.6 g/dL (11.5-15.4); Immature Granulocytes % 0.5 % (0-4); Lymphocytes # 0.9 K/mcL (0.6-4.6); Lymphocytes % 10.3 %; Mean Corpuscular HGB Conc 30.4 g/dL (31.6-35.5); Mean Corpuscular Hemoglobin 25.1 pg (28.0-33.3); Mean Corpuscular Volume 82.5 fL (83.0-100.0); Mean Platelet Volume 10.3 fL (9.4-12.4); Monocytes # 0.9 K/mcL (0.0-1.3); Monocytes % 10.3 %; Neutrophils # 6.7 K/mcL (1.6-8.9); Platelet Count 285 K/mcL (140-400); Red Blood Count 4.63 M/mcL (3.82-4.97); Red Cell Distribution Width 17.5 % (11.5-14.5); Segmented Neutrophils % 78.7 %; White Blood Count 8.5 K/mcL (4.3-11.1)
[2020-06-02 04:35] LABS: Alanine Aminotransferase 29 Units/L (7-52); Albumin 3.5 g/dL (3.5-5.7); Albumin/Globulin Ratio 1.1 (1.1-2.2); Alkaline Phosphatase 83 Units/L (34-104); Aspartate Amino Transferase 22 Units/L (13-39); BUN/Creatinine Ratio 41 (6-26); Bilirubin,Direct 0.1 mg/dL (0.0-0.2); Bilirubin,Indirect 0.2 mg/dL (0.0-1.0); Bilirubin,Total 0.3 mg/dL (0.3-1.0); Blood Urea Nitrogen 21 mg/dL (6-20); Calcium 8.6 mg/dL (8.6-10.3); Carbon Dioxide 26 mEq/L (23-29); Chloride 105 mEq/L (98-107); Globulin 3.2 g/dL (2.4-3.5); Glucose 113 mg/dL (70-105); Magnesium 2.3 mg/dL (1.6-2.6); Osmolality,Calculated 294 (280-300); Potassium 4.2 mEq/L (3.5-5.1); Sodium 140 mEq/L (136-145); Total Protein 6.7 g/dL (6.4-8.9); eGFR For African Americans > 60 (> 60); eGFR For Non-African Americans > 60 (> 60)
[2020-06-02] MEDS: *HR* Enoxaparin 40 MG/0.4 ML SYRINGE SQ SCH (05:34)
[2020-06-02] MEDS: Furosemide 20 MG/2 ML VIAL IVP SCH ×2 (10:17→20:14)
[2020-06-02] MEDS: Remdesivir 100 MG in 0.9 % Sodium Chloride 100 ML IVPB SCH (16:05)
[2020-06-03] MEDS: Ipratropium 1 PUFF INHALER IH SCH ×6 (03:22→23:04)
[2020-06-03 04:41] LABS: Basophils % 0.4 %; Hematocrit 40.6 % (35.3-44.9); Hemoglobin 12.7 g/dL (11.5-15.4); Immature Granulocytes % 1.2 % (0-4); Lymphocytes % 13.7 %; Mean Corpuscular HGB Conc 31.3 g/dL (31.6-35.5); Mean Corpuscular Hemoglobin 25.6 pg (28.0-33.3); Mean Corpuscular Volume 81.7 fL (83.0-100.0); Mean Platelet Volume 10.6 fL (9.4-12.4); Monocytes # 0.7 K/mcL (0.0-1.3); Monocytes % 9.8 %; Neutrophils # 5.6 K/mcL (1.6-8.9); Platelet Count 314 K/mcL (140-400); Red Blood Count 4.97 M/mcL (3.82-4.97); Red Cell Distribution Width 17.2 % (11.5-14.5); Segmented Neutrophils % 74.9 %; White Blood Count 7.5 K/mcL (4.3-11.1)
[2020-06-03 04:53] LABS: BUN/Creatinine Ratio 44 (6-26); Blood Urea Nitrogen 23 mg/dL (6-20); Calcium 8.7 mg/dL (8.6-10.3); Carbon Dioxide 26 mEq/L (23-29); Chloride 99 mEq/L (98-107); Glucose 124 mg/dL (70-105); Osmolality,Calculated 289 (280-300); Potassium 3.7 mEq/L (3.5-5.1); Sodium 137 mEq/L (136-145); eGFR For African Americans > 60 (> 60); eGFR For Non-African Americans > 60 (> 60)
[2020-06-03 04:56] LABS: Albumin 3.7 g/dL (3.5-5.7); Albumin/Globulin Ratio 1.1 (1.1-2.2); Bilirubin,Indirect 0.3 mg/dL (0.0-1.0); Bilirubin,Total 0.3 mg/dL (0.3-1.0); Globulin 3.5 g/dL (2.4-3.5); Total Protein 7.2 g/dL (6.4-8.9)
[2020-06-03] MEDS: *HR* Enoxaparin 40 MG/0.4 ML SYRINGE SQ SCH (05:24)
[2020-06-03 07:11] LABS: Anisocytosis 1+ (Not Present); Platelet Estimate Normal (Normal)
[2020-06-03] MEDS: Furosemide 20 MG/2 ML VIAL IVP SCH (09:39)
[2020-06-03] MEDS: Remdesivir 100 MG in 0.9 % Sodium Chloride 100 ML IVPB SCH (15:06)
[2020-06-03] MEDS: traZODone 50 MG TABLET PO SCH (20:03)
[2020-06-03] MEDS ORDERED: traZODone 50 MG TABLET PO SCH (21:00)
[2020-06-03] MEDS: Artificial Tears SOLN 15 ML BOTTLE BOTH EYES SCH (21:16)
[2020-06-04] MEDS: Ipratropium 1 PUFF INHALER IH SCH ×6 (03:40→23:09)
[2020-06-04 04:22] LABS: Platelet Count 355 K/mcL (140-400); Red Cell Distribution Width 16.8 % (11.5-14.5)
[2020-06-04 04:23] LABS: Hematocrit 39.2 % (35.3-44.9); Hemoglobin 12.3 g/dL (11.5-15.4); Immature Platelets 5.7 % (1.1-6.1); Mean Corpuscular HGB Conc 31.4 g/dL (31.6-35.5); Mean Corpuscular Hemoglobin 24.8 pg (28.0-33.3); Mean Corpuscular Volume 79.2 fL (83.0-100.0); Mean Platelet Volume 10.5 fL (9.4-12.4); Red Blood Count 4.95 M/mcL (3.82-4.97); White Blood Count 9.9 K/mcL (4.3-11.1)
[2020-06-04 04:43] LABS: Alanine Aminotransferase 25 Units/L (7-52); Albumin 3.7 g/dL (3.5-5.7); Albumin/Globulin Ratio 1.1 (1.1-2.2); Alkaline Phosphatase 76 Units/L (34-104); Aspartate Amino Transferase 17 Units/L (13-39); BUN/Creatinine Ratio 37 (6-26); Bilirubin,Direct 0.1 mg/dL (0.0-0.2); Bilirubin,Indirect 0.2 mg/dL (0.0-1.0); Bilirubin,Total 0.3 mg/dL (0.3-1.0); Blood Urea Nitrogen 21 mg/dL (6-20); Calcium 9.1 mg/dL (8.6-10.3); Carbon Dioxide 28 mEq/L (23-29); Chloride 98 mEq/L (98-107); Globulin 3.4 g/dL (2.4-3.5); Glucose 123 mg/dL (70-105); Osmolality,Calculated 284 (280-300); Potassium 4.1 mEq/L (3.5-5.1); Sodium 135 mEq/L (136-145); Total Protein 7.1 g/dL (6.4-8.9); eGFR For African Americans > 60 (> 60); eGFR For Non-African Americans > 60 (> 60)
[2020-06-04 04:55] LABS: Lymphocytes # 1.2 K/mcL (0.6-4.6); Monocytes # 0.6 K/mcL (0.0-1.3); Neutrophils # 8.1 K/mcL (1.6-8.9); Platelet Estimate Normal (Normal); Reactive Lymphocytes Present (Not Present)
[2020-06-04] MEDS: *HR* Enoxaparin 40 MG/0.4 ML SYRINGE SQ SCH (05:26)
[2020-06-04] MEDS ORDERED: Furosemide 20 MG TABLET PO SCH (09:00)
[2020-06-04] MEDS: Remdesivir 100 MG in 0.9 % Sodium Chloride 100 ML IVPB SCH (15:44)
[2020-06-04] MEDS ORDERED: 0.9 % Sodium Chloride 250 ML ONE (15:51)
[2020-06-04] MEDS: Furosemide 20 MG/2 ML VIAL IVP SCH (18:19)
[2020-06-04] MEDS: traZODone 50 MG TABLET PO SCH (20:00)
[2020-06-04] MEDS: Artificial Tears SOLN 15 ML BOTTLE BOTH EYES SCH (20:00)
[2020-06-05] MEDS: Ipratropium 1 PUFF INHALER IH SCH ×6 (04:21→23:19)
[2020-06-05] MEDS: *HR* Enoxaparin 40 MG/0.4 ML SYRINGE SQ SCH (05:02)
[2020-06-05 05:06] LABS: Albumin 3.6 g/dL (3.5-5.7); Albumin/Globulin Ratio 1.1 (1.1-2.2); Bilirubin,Direct 0.1 mg/dL (0.0-0.2); Bilirubin,Indirect 0.3 mg/dL (0.0-1.0); Bilirubin,Total 0.4 mg/dL (0.3-1.0); Globulin 3.3 g/dL (2.4-3.5); Total Protein 6.9 g/dL (6.4-8.9)
[2020-06-05 05:08] LABS: BUN/Creatinine Ratio 34 (6-26); Blood Urea Nitrogen 22 mg/dL (6-20); Calcium 8.7 mg/dL (8.6-10.3); Carbon Dioxide 31 mEq/L (23-29); Chloride 97 mEq/L (98-107); Glucose 107 mg/dL (70-105); Lactate Dehydrogenase 278 Units/L (140-271); Magnesium 2.3 mg/dL (1.6-2.6); Osmolality,Calculated 288 (280-300); Phosphorous 3.9 mg/dL (2.7-4.5); Potassium 3.6 mEq/L (3.5-5.1); Sodium 137 mEq/L (136-145); eGFR For African Americans > 60 (> 60); eGFR For Non-African Americans > 60 (> 60)
[2020-06-05 05:27] LABS: Ferritin 19 ng/mL (10-120)
[2020-06-05] MEDS: Furosemide 20 MG/2 ML VIAL IVP SCH ×2 (09:24→17:17)
[2020-06-05] MEDS: Artificial Tears SOLN 15 ML BOTTLE BOTH EYES SCH (20:12)
[2020-06-05] MEDS: traZODone 50 MG TABLET PO SCH (20:12)
[2020-06-06] MEDS: Ipratropium 1 PUFF INHALER IH SCH ×6 (03:23→23:13)
[2020-06-06] MEDS: *HR* Enoxaparin 40 MG/0.4 ML SYRINGE SQ SCH (06:52)
[2020-06-06] MEDS: Furosemide 20 MG/2 ML VIAL IVP SCH (08:20)
[2020-06-06] MEDS: Furosemide 40 MG/4 ML VIAL IVP SCH (17:45)
[2020-06-06] MEDS: Artificial Tears SOLN 15 ML BOTTLE BOTH EYES SCH (21:36)
[2020-06-06] MEDS: traZODone 50 MG TABLET PO SCH (21:36)
[2020-06-07] MEDS: Ipratropium 1 PUFF INHALER IH SCH ×6 (03:52→23:48)
[2020-06-07] MEDS: *HR* Enoxaparin 40 MG/0.4 ML SYRINGE SQ SCH (05:47)
[2020-06-07] MEDS: Furosemide 40 MG/4 ML VIAL IVP SCH ×2 (07:48→18:08)
[2020-06-07] MEDS: traZODone 50 MG TABLET PO SCH (20:07)
[2020-06-07] MEDS: Artificial Tears SOLN 15 ML BOTTLE BOTH EYES SCH (20:08)
[2020-06-08] MEDS: Ipratropium 1 PUFF INHALER IH SCH ×6 (03:50→23:08)
[2020-06-08] MEDS: *HR* Enoxaparin 40 MG/0.4 ML SYRINGE SQ SCH (06:26)
[2020-06-08] MEDS: Furosemide 40 MG/4 ML VIAL IVP SCH ×2 (08:12→17:52)
[2020-06-08 11:45] LABS: Basophils # 0.1 K/mcL (0.0-0.2); Basophils % 0.3 %; Eosinophils % 0.1 %; Hematocrit 44.3 % (35.3-44.9); Hemoglobin 14.1 g/dL (11.5-15.4); Immature Granulocytes % 1.7 % (0-4); Lymphocytes # 1.2 K/mcL (0.6-4.6); Lymphocytes % 5.3 %; Mean Corpuscular HGB Conc 31.8 g/dL (31.6-35.5); Mean Corpuscular Hemoglobin 24.9 pg (28.0-33.3); Mean Corpuscular Volume 78.1 fL (83.0-100.0); Mean Platelet Volume 9.9 fL (9.4-12.4); Monocytes # 1.3 K/mcL (0.0-1.3); Monocytes % 6.1 %; Neutrophils # 18.9 K/mcL (1.6-8.9); Platelet Count 489 K/mcL (140-400); Red Blood Count 5.67 M/mcL (3.82-4.97); Red Cell Distribution Width 17.2 % (11.5-14.5); Segmented Neutrophils % 86.5 %; White Blood Count 21.8 K/mcL (4.3-11.1)
[2020-06-08 12:00] LABS: Alanine Aminotransferase 22 Units/L (7-52); Albumin/Globulin Ratio 1.1 (1.1-2.2); Alkaline Phosphatase 77 Units/L (34-104); Aspartate Amino Transferase 15 Units/L (13-39); BUN/Creatinine Ratio 25 (6-26); Bilirubin,Total 0.5 mg/dL (0.3-1.0); Blood Urea Nitrogen 22 mg/dL (6-20); Carbon Dioxide 30 mEq/L (23-29); Chloride 89 mEq/L (98-107); Globulin 3.6 g/dL (2.4-3.5); Glucose 153 mg/dL (70-105); Magnesium 2.3 mg/dL (1.6-2.6); Osmolality,Calculated 282 (280-300); Phosphorous 2.6 mg/dL (2.7-4.5); Potassium 3.1 mEq/L (3.5-5.1); Sodium 133 mEq/L (136-145); Total Protein 7.6 g/dL (6.4-8.9); eGFR For African Americans > 60 (> 60); eGFR For Non-African Americans > 60 (> 60)
[2020-06-08] MEDS: traZODone 50 MG TABLET PO SCH (20:26)
[2020-06-08] MEDS: Sennosides/Docusate Sodium TABLET PO SCH (20:35)
[2020-06-09] MEDS: Ipratropium 1 PUFF INHALER IH SCH ×4 (03:51→15:54)
[2020-06-09] MEDS: *HR* Enoxaparin 40 MG/0.4 ML SYRINGE SQ SCH (04:03)
[2020-06-09] MEDS: Artificial Tears SOLN 15 ML BOTTLE BOTH EYES SCH (04:03)
[2020-06-09 06:19] LABS: Basophils % 0.3 %; Eosinophils % 0.1 %; Hematocrit 42.4 % (35.3-44.9); Hemoglobin 13.6 g/dL (11.5-15.4); Immature Granulocytes % 1.7 % (0-4); Lymphocytes # 1.9 K/mcL (0.6-4.6); Mean Corpuscular HGB Conc 32.1 g/dL (31.6-35.5); Mean Corpuscular Volume 78.1 fL (83.0-100.0); Mean Platelet Volume 9.7 fL (9.4-12.4); Monocytes # 1.4 K/mcL (0.0-1.3); Monocytes % 10.7 %; Neutrophils # 9.8 K/mcL (1.6-8.9); Platelet Count 444 K/mcL (140-400); Red Blood Count 5.43 M/mcL (3.82-4.97); Red Cell Distribution Width 16.5 % (11.5-14.5); Segmented Neutrophils % 73.2 %; White Blood Count 13.5 K/mcL (4.3-11.1)
[2020-06-09 06:31] LABS: BUN/Creatinine Ratio 25 (6-26); Blood Urea Nitrogen 18 mg/dL (6-20); Calcium 8.9 mg/dL (8.6-10.3); Carbon Dioxide 34 mEq/L (23-29); Chloride 86 mEq/L (98-107); Glucose 114 mg/dL (70-105); Osmolality,Calculated 275 (280-300); Potassium 2.8 mEq/L (3.5-5.1); Sodium 131 mEq/L (136-145); eGFR For African Americans > 60 (> 60); eGFR For Non-African Americans > 60 (> 60)
[2020-06-09 07:23] VITALS: BP 130/83
[2020-06-09] MEDS ORDERED: Glycerin RECTAL Suppository RC ONE (08:00)
[2020-06-09] MEDS: Furosemide 40 MG/4 ML VIAL IVP SCH (08:51)
[2020-06-09] MEDS: Sennosides/Docusate Sodium TABLET PO SCH (08:53)
== END 2020-06-09 19:00 | disposition home or self-care (01) | DRG 177 ==
LOC: 3BNU 11:39 → EMEROOARM 11:39 → 3BNU 15:19 → 2NENU 05-31 05:16 → SUATTDRO 05-31 15:17 → 2NENU 06-01 14:44
PROVIDERS: ADMIT Internal Medicine; ATTEND Internal Medicine